=== PATIENT | female | born 1980 | race Two or more races ===

== ENCOUNTER 2017-01-01 21:34 | Emergency (ER) | payer MEDICAID ==
[~2017-01-01] VITALS: Ht 149.9 cm; Wt 59.0 kg
[2017-01-01 21:48] VITALS: BP 146/84
[2017-01-01 22:32] LABS: Basophils # (auto) 0.1 uL; Basophils % (auto) 0.8 % (0.0-2.0); Eosinophils # (auto) 0.1 uL; Lymphocytes # (auto) 2.3 uL; Monocytes # (auto) 0.9 uL
[2017-01-01 22:33] LABS: Eosinophils % (auto) 1.2 % (0.0-7.0); Hematocrit 26.1 % (36.0-46.0); Hemoglobin 8.1 g/dL (12.2-16.2); Lymphocytes % (auto) 24.2 % (10.0-50.0); Mean Corpuscular Hemoglobin 19.4 pg (28.0-32.0); Mean Corpuscular Volume 62.6 fL (80.0-100.0); Mean Platelet Volume 6.9 fL (6.9-10.8); Monocytes % (auto) 9.2 % (0.0-12.0); Neutrophils # (auto) 6.1 uL; Neutrophils % (auto) 64.6 % (37.0-80.0); Platelet Count (auto) 484 10^3/uL (140-450); White Blood Cell 9.4 10^3/uL (4.4-10.8)
[2017-01-01 22:35] LABS: Alkaline Phosphatase 78 U/L (45-117); Anion Gap 9 (5-15); Aspartate Aminotransferase 14 U/L (15-37); BUN/Creatinine Ratio 10.7; Bilirubin, Total 0.2 mg/dL (0.2-1.0); Blood Urea Nitrogen 9 mg/dL (7-18); Calcium 8.5 mg/dL (8.5-10.1); Carbon Dioxide 22 mmol/L (21-32); Chloride 106 mmol/L (98-107); GFR African American 99 mL/min; GFR Non-African American 82 mL/min; Glucose 119 mg/dL (74-106); Magnesium 2.1 mg/dL (1.6-2.6); Potassium 3.3 mmol/L (3.5-5.1); Sodium 137 mmol/L (136-145); Total Protein 8.5 g/dL (6.4-8.2)
[2017-01-01 22:49] LABS: Urine Bilirubin Negative (Negative); Urine Blood 2+ /uL (Negative); Urine Color Yellow (Yellow); Urine Glucose Normal (Normal); Urine Ketone Negative (Negative); Urine Mucus FEW (None Seen); Urine Nitrite Negative (Negative); Urine RBC 10 /hpf (0 - 4); Urine Squamous Epithelial Cell FEW /hpf (<5); Urine Urobilinogen Normal (Negative); Urine pH 5.5 (5.0-8.0)
[2017-01-01 23:25] LABS: Hypersegmented Neutrophils Present; Platelet Estimate Increased
[2017-01-01 23:26] LABS: Anisocytosis Moderate; Microcytosis Marked; Ovalocytes FEW
== END 2017-01-02 05:05 | disposition left against medical advice (07) ==
LOC: ER 21:38
DX: M79.602 Pain in left arm (principal); Z53.21 Procedure and treatment not carried out due to patient leaving prior to being seen by health care provider
CPT/HCPCS: 36415; 80053; 81001; 83735; 84443; 84484; 84702; 85025; 93005